=== PATIENT | female | born 1950 | race Caucasian/White ===

== ENCOUNTER 2017-01-15 10:00 | Outpatient (RCR) | payer OTHER ==
[~2017-01-15 10:00] MED LIST: AMLODIPINE BES2.5 MG ORAL; ASPIRIN81 MG ORAL; CORTEF10 MG ORAL; HUMATROPE IJ; LEVOTHYROXINE100 MCG ORAL; LEVOTHYROXINE25 MCG ORAL; LOVASTATIN10 MG ORAL; PAMELOR10 MG ORAL; WELLBUTRIN XL150 M3 ORAL; WELLBUTRIN75 MG ORAL
== END 2017-02-11 | disposition home or self-care (01) ==
LOC: PTY 10:00
DX: S72.22XD Displaced subtrochanteric fracture of left femur, subsequent encounter for closed fracture with routine healing (principal)

== ENCOUNTER 2017-02-13 12:10 | Outpatient (RCR) | payer OTHER | END 2017-03-13 | disposition home or self-care (01) | LOC: PTY 12:10 | DX: S72.22XD Displaced subtrochanteric fracture of left femur, subsequent encounter for closed fracture with routine healing (principal); X58.XXXD Exposure to other specified factors, subsequent encounter ==

== ENCOUNTER 2017-03-16 14:30 | Outpatient (RCR) | payer OTHER | END 2017-04-13 | disposition home or self-care (01) | LOC: PTY 14:30 | DX: S72.22XD Displaced subtrochanteric fracture of left femur, subsequent encounter for closed fracture with routine healing (principal) ==

== ENCOUNTER 2017-05-11 14:15 | Outpatient (RCR) | payer OTHER | END 2017-05-14 | disposition home or self-care (01) | LOC: PTY 14:15 | DX: S72.22XD Displaced subtrochanteric fracture of left femur, subsequent encounter for closed fracture with routine healing (principal); X58.XXXD Exposure to other specified factors, subsequent encounter; Z88.2 Allergy status to sulfonamides ==

== ENCOUNTER 2017-06-08 14:15 | Outpatient (RCR) | payer OTHER | END 2017-06-13 | disposition home or self-care (01) | LOC: PTY 14:15 | DX: S72.22XD Displaced subtrochanteric fracture of left femur, subsequent encounter for closed fracture with routine healing (principal) ==

== ENCOUNTER 2017-07-06 14:15 | Outpatient (RCR) | payer OTHER | END 2017-07-14 | disposition home or self-care (01) | LOC: PTY 14:15 | DX: S72.22XD Displaced subtrochanteric fracture of left femur, subsequent encounter for closed fracture with routine healing (principal); M54.5 Low back pain; Z86.73 Personal history of transient ischemic attack (TIA), and cerebral infarction without residual deficits ==

== ENCOUNTER 2017-08-10 14:13 | Outpatient (RCR) | payer OTHER | END 2017-08-13 | disposition home or self-care (01) | LOC: PTY 14:13 | DX: S72.22XD Displaced subtrochanteric fracture of left femur, subsequent encounter for closed fracture with routine healing (principal) ==

== ENCOUNTER 2017-08-25 14:00 | Outpatient (RCR) | payer OTHER | END 2017-09-13 | disposition home or self-care (01) | LOC: PTY 14:00 | DX: S72.22XD Displaced subtrochanteric fracture of left femur, subsequent encounter for closed fracture with routine healing (principal); M54.5 Low back pain ==